=== PATIENT | female | born 1995 ===

== ENCOUNTER 2017-04-29 18:50 | Emergency (ER) | payer OTHER ==
[2017-04-29 18:51] VITALS: BMI 40.2
--- NOTE | 2017-04-29 20:02 | ED PDOC ---
Arrival/HPI - General Chief Complaint: Headache Time Seen by Provider: 04/29/17 19:42 Historian: Patient - History of Present Illness Narrative History of Present Illness (Text): 04/29/17 20:00 A 22 year old female presents to the emergency department complaining of neck pain since earlier today. Patient reports radiating pain towards head and back. Patient denies any trauma, fever, chills, nausea, vomiting, abdominal pain, chest pain, shortness of breath or any other complaints. Time/Duration: Other (today) Past Medical History - Provider Review Nursing Documentation Reviewed: Yes - Infectious Disease Hx of Infectious Diseases: None - Genitourinary/Gynecological Hx Genitourinary Disorders: No - Psychiatric Hx Psychophysiologic Disorder: No Hx Substance Use: No - Surgical History Other/Comment: blood disorder - Anesthesia Hx Anesthesia: No Hx Anesthesia Reactions: No Hx Malignant Hyperthermia: No - Suicidal Assessment Feels Threatened In Home Enviroment: No Family/Social History - Physician Review Nursing Documentation Reviewed: Yes Family/Social History: No Known Family HX Smoking Status: Never Smoked Hx Alcohol Use: No Hx Substance Use: No Allergies/Home Meds Allergies/Adverse Reactions: Allergies No Known Allergies Allergy (Verified 04/29/17 19:34) Review of Systems - Physician Review All systems were reviewed & negative as marked: Yes - Review of Systems Constitutional: absent: Fevers, Night Sweats Respiratory: absent: SOB Cardiovascular: absent: Chest Pain Gastrointestinal: absent: Abdominal Pain, Nausea, Vomiting Musculoskeletal: Other (neck pain radiaitng to head and back) Physical Exam Vital Signs Reviewed: Yes Vital Signs Temp Pulse Resp BP Pulse Ox 04/29/17 19:35 98.6 F 67 18 122/78 100 Temperature: Afebrile Blood Pressure: Normal Pulse: Regular Respiratory Rate: Normal Appearance: Positive for: Well-Appearing, Non-Toxic, Comfortable Pain Distress: None Mental Status: Positive for: Alert and Oriented X 3 - Systems Exam Head: Present: Atraumatic, Normocephalic Pupils: Present: PERRL Extroacular Muscles: Present: EOMI Conjunctiva: Present: Normal Mouth: Present: Moist Mucous Membranes Neck: Present: Normal Range of Motion, Paraspinal Tenderness (cervical paraspinal tenderness) Respiratory/Chest: Present: Clear to Auscultation, Good Air Exchange. No: Respiratory Distress, Accessory Muscle Use Cardiovascular: Present: Regular Rate and Rhythm, Normal S1, S2. No: Murmurs Abdomen: Present: Normal Bowel Sounds. No: Tenderness, Distention, Peritoneal Signs Back: Present: Normal Inspection. No: Midline Tenderness, Paraspinal Tenderness Upper Extremity: Present: Normal Inspection. No: Cyanosis, Edema Lower Extremity: Present: Normal Inspection. No: Edema Neurological: Present: GCS=15, CN II-XII Intact, Speech Normal Skin: Present: Warm, Dry, Normal Color. No: Rashes Psychiatric: Present: Alert, Oriented x 3, Normal Insight, Normal Concentration Medical Decision Making ED Course and Treatment: 04/29/17 20:00 Impression: A 22 year old female with neck pain radiating to head and back Plan: -- Toradol -- Reassess and disposition Progress Notes: 04/29/17 20:42 suspect msk pain. pt well appearing neck supple no menigmus on phon ein nnad. pt given toradol with relief asking for dc - Medication Orders Current Medication Orders: Discontinued Medications Ketorolac Tromethamine (Toradol) 30 mg IM STAT STA Stop: 04/29/17 19:58 Last Admin: 04/29/17 20:21 Dose: 30 mg MAR Pain Assessment Document 04/29/17 20:21 IT (Rec: 04/29/17 20:21 IT [id number]) Pain Reassessment Is this a pain reassessment? No Sleep Is patient sleeping during reassessment? No Presence of Pain Presence of Pain Yes Pain Scale Used Pain Scale Used Numeric IM Administration Charges Document 04/29/17 20:21 IT (Rec: 04/29/17 20:21 IT [id number]) Injection Site MAR Injection Site Right Deltoid Charges for Administration # of IM Administrations 1 Disposition/Present on Arrival - Present on Arrival Any Indicators Present on Arrival: No History of DVT/PE: No History of Uncontrolled Diabetes: No Urinary Catheter: No History of Decub. Ulcer: No History Surgical Site Infection Following: None - Disposition Have Diagnosis and Disposition been Completed?: Yes Diagnosis: Neck pain Disposition: HOME/ ROUTINE Disposition Time: 20:52 Condition: STABLE Discharge Instructions (ExitCare): Muscle Spasm (ED), Cervical Strain (DC), Acute Headache (DC) Additional Instructions: return to er with worsening symptoms or concerns. Prescriptions: Cyclobenzaprine [Cyclobenzaprine HCl] 10 mg PO DAILY PRN #10 tab PRN Reason: Muscle Spasm Referrals: John Cherry MD [Primary Care Provider] - Follow up with primary Forms: [employer] (Niuean)
[2017-04-29 21:01] VITALS: BP 120/82; PULSE 71; RESP 17; TEMP 98.1; O2SAT 98
== END 2017-04-29 21:01 | disposition home or self-care (01) ==
LOC: ED 18:50
DX: M54.2 Cervicalgia (principal)
CPT/HCPCS: 96372; 99285; J1885